=== PATIENT | female | born 1990 | race Caucasian/White ===

== ENCOUNTER 2017-04-12 17:41 | Emergency (ER) | payer SELFPAY ==
[2017-04-12 17:43] VITALS: BP 114/69; PULSE 86; RESP 17; TEMP 36.6; O2SAT 94; BMI 28.9
--- NOTE | 2017-04-12 18:23 | ED.RN ---
PT was called to take back to a room, pt was seen walking out, states she is leaving because she has to work.
== END 2017-04-12 18:22 | disposition left against medical advice (07) ==
LOC: ED 18:26
PROVIDERS: Emergency Provider Emergency Medicine
DX: R11.10 Vomiting, unspecified (principal)

== ENCOUNTER → 2017-11-14 14:23 | Outpatient (CLI) | payer BC, SELFPAY ==
[2017-11-19 13:22] LABS: HPV Reflexed? NOT INDICATED
== END ==
PROVIDERS: Visit Provider Obstetrics & Gynecology
DX: Z12.4 Encounter for screening for malignant neoplasm of cervix (principal)
CPT/HCPCS: 88175; G0145

== ENCOUNTER → 2018-04-08 13:50 | Outpatient (CLI) | payer BC, SELFPAY ==
[2018-04-08 07:11] VITALS: BMI 28.5
[2018-04-08 14:29] LABS: Red Blood Cells-Urine 0 SEEN /hpf (0-5)
[2018-04-08 14:47] LABS: Color, Urine Yellow (Yellow); Glucose, Dipstick Normal (Normal); Ketone-Dipstick Negative (Negative); Leukocyte Esterase-Dipstick 25 /ul (Negative); Nitrite-Dipstick Negative (Negative); Occult Blood-Urine Negative /ul (Negative); Protein-Dipstick Negative (Negative); Specific Gravity, Urine 1.015 (1.002-1.030); Urine Bilirubin Dipstick Negative (Negative); Urine Clarity Sl. Cloudy (Clear); Urine Urobilinogen 4 mg/dl (Normal); Urine pH 6.5 (5.0 - 8.0)
[2018-04-08 15:19] LABS: Bacteria RARE /hpf (None Seen); Mucous, Urine 1+ /hpf (<or=2+); Squamous Epithelial Cells - UA 10-25 SEEN /hpf (5-10); White Blood Cells 0-5 SEEN /hpf (0-5)
== END ==
PROVIDERS: Referring Provider Physician Assistant Surgical; Visit Provider Physician Assistant Surgical
DX: R30.0 Dysuria (principal)
CPT/HCPCS: 81001; 87086; 87088

== ENCOUNTER → 2018-08-06 | Outpatient (CLI) | payer BC, SELFPAY ==
[2018-08-01 10:27] VITALS: BMI 28.5
--- NOTE | 2018-08-06 08:49 | BI_ITS ---
MAMMOGRAPHY - BILATERAL DIAGNOSTIC REASON FOR EXAM: Female, 27 years old. PERTINENT HISTORY: Non-contributory. TECHNIQUE: Digital examination. Mediolateral oblique (MLO) and craniocaudad (CC) views of both breasts were obtained. CAD: COMPARISON: None. FINDINGS: Breast Composition: of Scattered fibroglandular tissue . There are no dominant masses or suspicious calcifications. No other significant abnormalities are identified. BI/DIAG MAMM W/CAD, BILAT IMPRESSION: Stable bilateral diagnostic mammogram. ASSESSMENT CATEGORY: BIRADS 1. FOLLOW UP screening RECOMMENDATION: Approximately 10% of breast cancers are not detected by mammography. A normal mammogram should not delay biopsy of a clinically suspicious abnormality. Electronically Signed: Mac Colon, at 16:03 EDT Tel , Service support ,
--- NOTE | 2018-08-06 08:49 | US_ITS ---
STUDY: ULTRASOUND BREAST - RIGHT REASON FOR EXAM: Female, 27 years old. TECHNIQUE: Axial and longitudinal images of the RIGHT breast were performed with a high resolution ultrasound transducer. COMPARISON: None. FINDINGS: RIGHT Breast: There are 3 palpable cyst upper outer quadrant the first one measures 0.7 x 0.6 cm at 12:00 o'clock and about 6 cm away from the nipple. At 11:00 o'clock there is 0.5 x 0.5 cm cyst which is about 6 cm away from the nipple. There is 0.3 x 0.3 cm cyst also at 11:00 o'clock and also 6 cm away from the nipple. Impression : Few cysts present upper outer quadrant the measurements and locations described above. Electronically Signed: Mac Colon, at 15:59 EDT Tel , Service support , US/Breast Limited Unilateral
== END | disposition home or self-care (01) ==
PROVIDERS: Referring Provider Nurse Practitioner Women's Health; Visit Provider Nurse Practitioner Women's Health
DX: N63.11 Unspecified lump in the right breast, upper outer quadrant (principal); N64.52 Nipple discharge
CPT/HCPCS: 76642; 77066

== ENCOUNTER 2019-08-21 23:04 | Emergency (ER) | payer BC, SELFPAY ==
[2018-08-17 08:59] VITALS: BMI 28.5
[2019-08-21 23:05] VITALS: BP 136/78; PULSE 88; RESP 16; TEMP 36.3; O2SAT 99; BMI 28.0
--- NOTE | 2019-08-22 00:24 | ED.DCSUM_ITS ---
History of Present Illness Chief Complaint: Vag Bleeding Informant: Patient Narrative: 28-year-old female presents with concern for vaginal bleeding. States that she has had vaginal bleeding for the past 2 weeks. States that her normal menstrual cycle is approximately 9 days. Following that normal menstrual cycle she has had intermittent bleeding. Followed up with her REPRODUCTION SPECIALIST Dr. Giron 2 days ago and was placed on hormone therapy which has not reduced her bleeding. States that her typical period is heavy in nature. States that she is gone through 2 pads over the past 4 hours. Denies any abdominal pain. Denies any vaginal discharge or concern for STDs. Is currently sexually active. Denies any chest pain, shortness of breath, lightheadedness, dizziness. Past Medical History - Allergies and Home Meds Allergies/Adverse Reactions: Allergies benzocaine [From Campho-Phenique] Allergy (Mild, Verified 08/22/19 00:15) cant breath camphor [From Campho-Phenique] Allergy (Mild, Verified 08/22/19 00:15) cant breath menthol [From Campho-Phenique] Allergy (Mild, Verified 08/22/19 00:15) cant breath petrolatum,white [From Campho-Phenique] Allergy (Mild, Verified 08/22/19 00:15) cant breath phenol [From Campho-Phenique] Allergy (Mild, Verified 08/22/19 00:15) cant breath phenol liquid [From Campho-Phenique] Allergy (Mild, Verified 08/22/19 00:15) cant breath pramoxine [From Campho-Phenique] Allergy (Mild, Verified 08/22/19 00:15) cant breath Primary Care Physician: Juan Giron MD [Primary Care Provider] - Prior records reviewed: Yes Past Medical History: None Surgical History: cholecystectomy, hysterectomy Lives: Alone Smoking Status: Current every day smoker Alcohol: None Drugs: None Review of Systems General: Denies: Chills, Fever, Sweats Eyes: Denies: Visual changes - bilaterally, Diplopia ENT: Denies: Rhinorrhea, Sore throat Cardiovascular: Denies: Chest pain, Palpitations Respiratory: Denies: Dyspnea, Cough, Dyspnea on exertion Gastrointestinal: Denies: Abdominal pain, Nausea, Vomiting, Diarrhea, Melena, Hematochezia Genitourinary: Reports: - - vaginal bleeding. Denies: Dysuria, Hematuria, Frequency Musculoskeletal: Denies: Back pain, Extremity Pain Skin: Denies: Rash, Wounds Neurological: Denies: Headache, Weakness, Numbness Physical Exam Vital Signs/Narrative: Vital Signs Temp Pulse Resp BP Pulse Ox 08/21/19 23:05 97.4 F L 88 16 136/78 H 99 Inital Vital Signs reviewed: Yes General: Well nourished, Well developed, No Acute Distress Head: Normocephalic, Atraumatic Eyes: Perrl, EOMI ENT: Moist mucous membranes, No rhinorrhea Neck: Supple, Nontender Cardiovascular: Regular rate, Regular rhythm, No murmurs Respiratory: No distress, CTA bilaterally, Chest nontender Abdomen: Soft, Nontender, Nondistended, Normal bowel sounds : - - Evidence of scant blood within the vaginal vault. Cervix appears normal without abnormal tissue. No cervical motion tenderness. No significant tenderness on palpation of the uterus or bilateral adnexal regions. Back: Nontender, Normal Inspection Extremities: Nontender, No edema Skin: Normal color, No rash Neurological: Alert, Oriented x3, Cranial nerves II-XII grossly intact, Normal Strength, Normal Sensation Psychological: Normal affect, Normal Mood Diagnostic/Tx/Re-eval Laboratory Data 08/22/19 08/22/19 00:15 00:15 Urine Color Yellow Urine Clarity Clear Urine pH 7.0 Ur Specific [place] 1.010 Urine Protein Negative Urine Glucose (UA) Normal Urine Ketones Negative Urine Occult Blood 250 H Urine Nitrite Negative Urine Bilirubin Negative Urine Urobilinogen Normal Ur Leukocyte Esterase Negative Urine RBC 0 SEEN Urine WBC 0-5 SEEN Ur Squamous Epith Cells 0 SEEN Urine Bacteria 0 SEEN Urine Mucus 0 SEEN Urine Test Negative - Medical Decision Making Patient appears well nontoxic. Vital signs within normal limits. Urine shows no evidence of infection or . Pelvic exam shows no significant abnormalities. Patient will be advised to follow-up with her REPRODUCTION SPECIALIST within the next 48 hours. Asked to return for new or worsening symptoms. Patient agreeable and discharged home in stable condition. ED Disposition - Plan for ED Patient: Disposition: Home or Assisted Living Diagnosis: Vaginal bleeding Instructions: ED Bleed Irregular Vaginal Referrals: Juan Giron MD [Primary Care Provider] -
[2019-08-22 00:27] LABS: Bacteria 0 SEEN /hpf (None Seen); Mucous, Urine 0 SEEN /hpf (<or=2+); Red Blood Cells-Urine 0 SEEN /hpf (0-5); Squamous Epithelial Cells - UA 0 SEEN /hpf (5-10)
[2019-08-22 00:37] LABS: Color, Urine Yellow (Yellow); Glucose, Dipstick Normal (Normal); Ketone-Dipstick Negative (Negative); Leukocyte Esterase-Dipstick Negative /ul (Negative); Nitrite-Dipstick Negative (Negative); Occult Blood-Urine 250 /ul (Negative); Protein-Dipstick Negative (Negative); Urine Bilirubin Dipstick Negative (Negative); Urine Clarity Clear (Clear); Urine Urobilinogen Normal (Normal)
[2019-08-22 00:47] LABS: Internal QC Validated? YES +Cl - CLEAR BKGD; Pregnancy, Urine Negative Negative
[2019-08-22 00:49] LABS: White Blood Cells 0-5 SEEN /hpf (0-5)
== END 2019-08-22 01:38 | disposition home or self-care (01) ==
PROVIDERS: Emergency Provider Emergency Medicine
DX: N93.9 Abnormal uterine and vaginal bleeding, unspecified (principal); F17.200 Nicotine dependence, unspecified, uncomplicated
CPT/HCPCS: 81001; 81025; 99282

== ENCOUNTER 2022-05-24 18:15 | Emergency (ER) | payer BC, SELFPAY ==
[2022-05-24 18:16] VITALS: BP 97/70; PULSE 97; RESP 16; TEMP 36.4; O2SAT 99; BMI 32.1
--- NOTE | 2022-05-24 18:27 | EX.ED.DYSGE1 ---
HPI History of Present Illness Chief Complaint: Other, Pain/Inj Detail of Chief Complaint: Painful bowel movement and bright red blood per rectum Informant: patient Onset/Context/Timing Onset: Yesterday Context: Sudden Onset Timing: Intermittent Quality: Bright red blood Location: Rectum Current Severity: Gone Maximum Severity: Moderate Worsened by: Bowel movement Relieved by: Nothing Associated Symptoms Associated Symptoms: Pain with hard bowel movement Narrative Narrative: Patient is a 31-year-old woman who started a keto diet 2 weeks ago. She has had hard stool. Since yesterday she is noted bright red blood on toilet paper and in commode. She also complains of mild discomfort. She denies black or maroon-colored stool. She is not on an antithrombotic or anticoagulant. There is no history of inflammatory bowel disorder. Patient denies bruising easily. Denies bleeding of her gums. She denies hematuria. Prior similar symptoms: No Recent Illness/Hospitalization: No PFSH PFSH Medical History no medical history no medical history Home Medications medroxyprogesterone 10 mg tablet 10 mg PO DAILY 08/22/19 [History Last Taken Unknown] fluconazole 200 mg tablet 200 mg PO DAILY #1 TAB 10/25/19 [Rx Last Taken Unknown] Allergy/AdvReac Type Severity Reaction Status Date / Time benzocaine Allergy Mild cant breath Verified 10/25/19 09:12 [From Campho-Phenique] camphor Allergy Mild cant breath Verified 10/25/19 09:12 [From Campho-Phenique] menthol Allergy Mild cant breath Verified 10/25/19 09:12 [From Campho-Phenique] petrolatum,white Allergy Mild cant breath Verified 10/25/19 09:12 [From Campho-Phenique] phenol [From Campho-Phenique] Allergy Mild cant breath Verified 10/25/19 09:12 phenol liquid Allergy Mild cant breath Verified 10/25/19 09:12 [From Campho-Phenique] pramoxine Allergy Mild cant breath Verified 10/25/19 09:12 [From Campho-Phenique] Family History Grandmother Diabetes Bladder cancer Mother Myocardial infarction Surgical History History of delivery History of cholecystectomy History of foot surgery S/P tubal ligation Social History Smoking Status: Current every day smoker Electronic Cigarette Use: with nicotine alcohol intake: never substance use type: does not use caffeine: Yes what type of physical activity do you participate in: none seatbelt use: always do you feel safe at home: Yes additional social history: Single-Works at [employer] ED Constitutional Constitutional ED: Denies chills, fever(s), subjective, sweats or weight loss Gastrointestinal Gastrointestinal: Reports other Details: Documented in the HPI narrative portion of the chart ; Denies abdominal pain, constipation, diarrhea, melena, nausea or vomiting Genitourinary Genitourinary ED: Denies hematuria Hematologic/Lymphatic Hematologic/Lymphatic: Reports systems reviewed and no addt'l complaints, except as documented EXAM Physical Exam Const Vital Signs: 05/24/22 18:16 Temperature 97.6 F L Temperature Source Temporal Pulse Rate 97 Respiratory Rate 16 Blood Pressure 97/70 Blood Pressure Mean 79 Pulse Ox 99 Oxygen Delivery Method Room Air Positive well nourished, well developed and obese General Appearance ED: well developed and NAD; Negative for cyanotic or diaphoretic Nutritional Appearance: obese HEENT Reports moist mucous membranes HEENT Narrative: Atraumatic normocephalic Eyes PERRL and EOMs intact bilaterally General Eye ED: Negative for pale conjunctiva or scleral icterus Resp normal respiratory effort Cardio regular rate and regular rhythm GI normal to inspection, nondistended, normoactive bowel sounds, non-tender and non-distended; Negative for hepatosplenomegaly or no masses GI Narrative: Blood noted anus. There is no palpable mass. There is no obvious fissure in anal. Stool is brown. Back/Spine no CVA tenderness Neuro oriented x3 and CN's II-XII intact bilaterally Psych mental status grossly normal Skin no rashes or lesions noted, no wounds and skin turgor normal Procedures Other Procedures Procedure(s): Anoscopy was performed with nurse cardroom plastic card grader in room. Patient has hemorrhoids noted at 6:00 lithotomy position. Rectal mucosa appears normal. Stool that was noted above anoscope was brown. Discharge Plan Triage Chief Complaint: Other, Pain/Inj ED Provider: Fly Mathews Dx/Rx/DC Orders Clinical Impression: Bleeding external hemorrhoids Instructions: ED Hemorrhoids Prescriptions: No Action fluconazole 200 mg tablet 200 mg PO DAILY Qty: 1 3RF medroxyprogesterone 10 MG tablet 10 mg PO DAILY Primary Care Provider: Care Physician,No Primary Referrals: Katie Dominguez MD [Med Staff - [employer] Mechanic] - 1 Week if not improving Care Physician,No Primary [Primary Care Provider] - Disposition Disposition: Home, Self Care
== END 2022-05-24 18:47 | disposition home or self-care (01) ==
LOC: ED 18:42
PROVIDERS: Emergency Provider Emergency Medicine; Visit Provider Emergency Medicine
DX: K64.5 Perianal venous thrombosis (principal); F17.210 Nicotine dependence, cigarettes, uncomplicated; E66.9 Obesity, unspecified
CPT/HCPCS: 99282